=== PATIENT | male | born 1995 | race Caucasian/White ===

== ENCOUNTER 2016-06-05 13:43 | Emergency (ER) | payer OTHER ==
--- NOTE | ~2016-06-05 | CR63 ---
[facility] RADIOLOGY TEXT RESULTS PATIENT: JONO LYLE LOCATION: SED : [birth year] UNIT #: [id number] AGE: [address]: Fiordaliza Jacobson APRN SEX: M ORDER DR: [id number] [place] [id number] MR#: [id number] Acc #: [id number] NAME: JONO LYLE : 1995 SEX: M STUDY DATE/TIME: 06/05/2016 14:21 UNIT: SED ROOM: STUDY DESCRIPTION: CR Chest 2 View Attending Physician: Fiordaliza Jacobson A.P.R.N. Ordering Physician: Fiordaliza Jacobson A.P.R.N. Primary Care Physician: No Primary Care Physician MEDICAL IMAGING REPORT This report is preliminary unless electronic signature is present. EXAM PA and lateral chest. HISTORY Fever and sore throat since yesterday. COMPARISON STUDIES None FINDINGS PA and lateral examination of the chest upright shows a good expansion of the parenchyma with a normal distribution of the pulmonary vascularity. There is no indication of congestion, effusion, infiltrate, tumor, or nodular density. The pleural reflections and diaphragmatic contours are normal. The cardiac silhouette and mediastinal anatomy is within normal limits. IMPRESSION Normal chest. Dictated by... Sachin Aguilar M.D. THIS IS AN ELECTRONICALLY VERIFIED REPORT Sachin Aguilar M.D. at 06/06/2016 6:08 AM DEONTE/fernando TD: 06/05/2016 16:43 JOB #: [id number] [facility] RADIOLOGY TEXT RESULTS PATIENT: JONO LYLE LOCATION: SED : 95 UNIT #: [id number] AGE: [address]: Fiordaliza Jacobson APRN SEX: M ORDER DR: MEDICAL IMAGING REPORT Page 1 of 1
[~2016-06-05 13:43] MED LIST: DESYREL50 M1 PO; HYDROCODON-ACE1 EAC7 PO; IBUPROFEN PO; IBUPROFEN600 MG PO; KEFLEX500 MG PO; LAMICTAL150 MG PO; NO MEDICATIONS; PENICILLIN V P500 MG PO; VICODIN 5/500 T1 TAB PO; WELLBUTRIN PO
[2016-06-05 14:04] LABS: INFLUENZA A NEG (NEG); INFLUENZA B NEG (NEG)
[2016-06-05 15:45] LABS: BASOPHIL% 0.2 % (0-2.5); HEMATOCRIT 42.7 % (38.0-50.0); HEMOGLOBIN 14.9 gm/dL (13.0-16.0); LYMPHOCYTE# 1.6 X10e3 (1.0-3.5); LYMPHOCYTE% 9.5 % (17.0-45.0); MEAN CELL VOLUME 84.3 FL (83-96); MEAN CORPUSCULAR HEMOGLOBIN 29.5 PG (28-34); MEAN PLATELET VOLUME 7.5 FL (6.5-11.5); MONOCYTE# 1.8 X10e3 (0-1.0); MONOCYTE% 10.6 % (3.0-12.0); NEUTROPHIL# 13.4 X10e3 (1.5-7.1); NEUTROPHIL% 79.7 % (40-75); PLATELET COUNT 278 X10e3 (140-420); RED BLOOD COUNT 5.07 X10e (3.90-5.60); RED CELL DISTRIBUTION WIDTH 12.7 % (11.0-15.5); WHITE BLOOD COUNT 16.9 X10e3 (4.0-10.5)
[2016-06-05 15:50] LABS: DIFF IND NO
[2016-06-05 16:07] LABS: ALBUMIN SERUM 4.5 g/dL (3.5-5.0); BILIRUBIN, DIRECT 0.2 mg/dL (0.0-0.2); BILIRUBIN,INDIRECT 0.9 mg/dL (0.0-0.9); BILIRUBIN,TOTAL 1.1 mg/dL (0.2-2.0); CALCIUM SERUM 9.3 mg/dL (8.4-10.2); GLOM FILT RATE Estimated 107.9 mL/min (>60); POTASSIUM 3.4 mmol/L (3.5-5.1); PROTEIN TOTAL SERUM 8.2 g/dL (6.0-8.3)
== END 2016-06-05 18:07 | disposition home or self-care (01) ==
LOC: SED 13:43
PROVIDERS: Nurse Practitioner
DX: J02.9 Acute pharyngitis, unspecified (principal); F17.210 Nicotine dependence, cigarettes, uncomplicated; F98.8 Other specified behavioral and emotional disorders with onset usually occurring in childhood and adolescence
CPT/HCPCS: 36415; 71020; 80048; 80076; 85025; 86308; 87651; 87804; 96360; 99284